=== PATIENT | female | born 1960 | race Caucasian/White ===

== ENCOUNTER 2022-03-08 08:15 | Emergency (ER) | payer OTHER, SELFPAY ==
[2022-03-08 08:21] VITALS: BP 199/99; PULSE 76; RESP 18; TEMP 36.3; O2SAT 98; BMI 34.3
--- NOTE | 2022-03-08 08:35 | ED.ABDPAIN ---
HPI - Abdominal Pain General Time Seen by Provider: 08:25 Date Seen: 03/08/22 Chief Complaint: Abdominal Pain Stated Complaint: abdominal pain Time Seen by Provider: 03/08/22 08:29 Source: patient and RN notes reviewed Mode of arrival: ambulatory Limitations: no limitations History of Present Illness HPI narrative: Patient is a 62-year-old female coming in with severe abdominal cramping. She points to her upper abdomen where she is feeling this. There may be some nausea, no vomiting or diarrhea. This woke her up about 4 hours ago from sleep. She is drink a little water but is not had anything to eat this morning. She admits she has had 2 other spells that were similar in the last couple of months. When kept her up all night but she was not seen for this. She has never had any prior abdominal surgery. She has no urinary symptoms. She is postmenopausal and has never had any postmenopausal bleeding. There was no associated fevers or chills with this. MD elicited complaint: abdominal pain Pertinent past history: none Onset (ago): hour(s) Pain Consistency: constant Location: epigastric and RUQ Severity: severe Quality: cramping Radiation: none Exacerbating factors: nothing Relieving factors: nothing Related Data Hx Last Menstrual Period: Postmenopausal Patient : No Home Medications Medication Instructions Recorded Confirmed No Known Home Medications 03/08/22 03/08/22 Allergies Allergy/AdvReac Type Severity Reaction Status Date / Time No Known Drug Allergies Allergy Verified 03/08/22 08:21 Review of Systems Status of ROS Reports: 10 or more systems reviewed and unremarkable except as noted in History and below [facility] Medical History (Updated 03/08/22 @ 13:11 by Maye Tripp MD) Acute cholecystitis Hypertension No significant past medical history Family History (Updated 03/08/22 @ 11:35 by David Thornton MD) Mother Uterine cancer Social History (Updated 03/08/22 @ 11:35 by David Thornton MD) 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 Smoking Status: Never smoker How often do you have a drink containing alcohol: monthly or less How often do you have six or more drinks on one occasion: Never AUDIT-C Alcohol total score: 1 Non-prescribed substance use: denies use Exam Const: Vital Signs, click to edit/add: Vital Signs - 24 hr 03/08/22 08:21 03/08/22 09:17 03/08/22 10:00 Temperature 97.3 F L Pulse Rate [Right Pulse Oximeter] 76 79 73 Respiratory Rate 18 18 18 Blood Pressure [Ri ght Upper Arm] 199/99 H 186/99 H 147/90 H Pulse Oximetry 98 99 93 03/08/22 10:30 03/08/22 11:00 Temperature Pulse Rate [Right Pulse Oximeter] 72 Respiratory Rate 18 118 H Blood Pressure [Ri ght Upper Arm] 145/85 H 143/85 H Pulse Oximetry 95 95 Documenting provider has reviewed patient's vital signs: yes Common normals: no apparent distress and oriented x3 General appearance: cooperative Nutritional appearance: obese Orientation/consciousness: Yes awake HENMT: Common normals: normocephalic, head/scalp atraumatic, external ears normal and external nose normal Head and scalp: normocephalic and atraumatic Face and sinus: normal facial exam Nose: external nose normal External ear: external ears normal Mouth: tongue normal and other (Mildly dry mucous membranes) Throat: posterior oropharynx normal Eye: Common normals: PERRL and EOMs intact bilaterally Pupil: PERRL Neck & C-Spine: Common normals: full ROM, no lymphadenopathy, supple, no JVD and thyroid normal Thyroid: thyroid normal Resp: Common normals: normal respiratory effort, no retractions, no use of accessory muscles and clear to auscultation bilaterally Auscultation: clear to auscultation bilaterally Cardio: Common normals: no JVD, regular rate, regular rhythm, S1 normal heart sound, S2 normal heart sound, no gallops, no clicks and no murmurs Rate: regular rate Rhythm: regular rhythm Heart sounds: S1 normal and S2 normal GI: Other: Abdomen is mildly obese, does not seem distended, she has xqbi-in-haiqvyot tenderness in the epigastric to right upper quadrant area without any organomegaly or palpable masses. Bowel sounds are hypo active. Extremity: Common normals: normal to inspection, full ROM, no calf tenderness and no pedal edema Neuro: Common normals: oriented x3 Sensorium/orientation: awake Course Course Hospital Course: Patient will get an IV placed, monitored on continuous oximetry is were going to give her morphine 4 mg IV for pain control and we will treat nausea with 4 mg IV. I am going to order right upper quadrant ultrasound to look at her gallbladder as abnormalities of her gallbladder are 1 of my top differential diagnoses. With hypoactive bowel sounds certainly ileus versus obstruction is always possible but certainly not as likely. She is not vomiting. She has never had any prior abdominal surgery putting her at risk for bowel obstruction. Other intra-abdominal pathology is possible and will get a full complement of labs including a lactate. Vascular etiologies in the abdomen really are not as likely by differential for this patient. She understands we may need to proceed to CT imaging and agrees to do so if felt necessary. Reevaluation(s) Reevaluation #1: Patient is comfortable after the morphine and Zofran. We will await the ultrasound report and the laboratory evaluation. Did review with the patient that there may be a bit of a delay in the labs as our chemistry analyzer is down they have to be sent to referral institution. The preliminary report on the ultrasound is that there are multiple small mobile stones in the gallbladder, gallbladder wall thickening and maybe some pericholecystic fluid. We will await Radiology over-read. Time: 09:35 Reevaluation #2: Patient remained stable, will be able to discharge to home for outpatient surgery tomorrow morning with laparoscopic cholecystectomy. She understands reasons for return. Note patient is clear for trial of anesthesia for the listed procedure. Time: 13:39 Consultations Consultation #1: Did page Dr. Thornton our surgeon whom promptly called back. Have reviewed with her that we do not have the liver panel or the lipase back but there are ultrasound findings concerning with the gallbladder. Around 11:[address] Thornton was in the ER and did examine the patient. She agreed she was pain-free at that time. Plan at this time is to appropriately preoperatively evaluate the patient, await her liver panel and lipase. If these pending labs are normal, patient will discharge home overnight with Brodhead for pain management, diet of clears to help nakia any pain and for cholecystectomy tomorrow. Time: 10:12 Consultation #2: Have reviewed the LFTs and normal lipase with General surgery. They feel she is still stable to discharge to home. Time: 12:56 Vital Signs Vital signs: Initial Vital Signs Temperature 97.3 F L 03/08/22 08:21 Temperature Source Temporal Artery Scan 03/08/22 08:21 Pulse Rate 76 03/08/22 08:21 Respiratory Rate 18 03/08/22 08:21 Blood Pressure 199/99 H 03/08/22 08:21 Blood Pressure Mean 132 03/08/22 08:21 Pulse Oximetry 98 03/08/22 08:21 Oxygen Delivery Method 03/08/22 08:21 Vital Signs Temperature 97.3 F L 03/08/22 08:21 Pulse Rate 76 03/08/22 08:21 Respiratory Rate 18 03/08/22 08:21 Blood Pressure 199/99 H 03/08/22 08:21 Pulse Oximetry 98 03/08/22 08:21 Temperature 97.3 F L 03/08/22 08:21 Pulse Rate 72 03/08/22 11:00 Respiratory Rate 118 H 03/08/22 11:00 Blood Pressure 143/85 H 03/08/22 11:00 Pulse Oximetry 95 03/08/22 11:00 MDM - Abdominal Pain MDM Narrative Medical decision making narrative: See hospital course. Lab Data Attestation: I reviewed the patient's lab results. Labs: Lab Results 03/08/22 03/08/22 03/08/22 Range/Units 09:08 09:08 09:08 WBC 10.62 (4.50-11.00) K/uL RBC 4.75 (4.00-5.20) m/uL Hgb 14.4 (12.0-16.0) gm/dL Hct 43.1 (33.0-51.0) % MCV 91 (80-100) fL MCH 30 (26-34) pg MCHC 33 (32-36) gm/dL RDW Coeff of Marisa 13.3 (11.5-15.5) % Plt Count 278 (140-440) K/uL Neut % (Auto) 81.6 H (42.0-72.0) % Lymph % (Auto) 9.2 L (20-44) % Harris % (Auto) 7.8 (0.0-11.0) % Eos % (Auto) 0.5 (0.0-7.0) % Baso % (Auto) 0.8 (0.0-3.0) % Neut # (Auto) 8.70 H (1.7-7.0) K/uL Lymph # (Auto) 1.00 (0.90-2.90) K/uL Harris # (Auto) 0.80 (0.00-0.90) K/UL Eos # (Auto) 0.05 (0.00-0.50) K/uL Baso # (Auto) 0.08 (0.00-0.30) K/uL Abs Immat Gran (auto) 0.01 (0.00-0.30) K/uL Sodium 141 (135-149) mmol/L Potassium 4.0 (3.6-5.1) mmol/L Chloride 104 (96-114) mmol/L Carbon Dioxide 26 (20-32) mmol/L BUN 13 (7-30) mg/dL Creatinine 0.7 (0.5-1.5) mg/dL Estimated Creat Clear 51.02 Glucose 127 H (60-115) mg/dL Lactate 3.1 H (0.5-1.9) mmol/L Calcium 9.2 (8.4-10.6) mg/dL Total Bilirubin 0.6 (0.1-1.5) mg/dL AST 150 H (12-35) U/L ALT 68 H (4-35) U/L Alkaline Phosphatase 134 (40-150) U/L Total Protein 7.4 (6.0-8.3) g/dL Albumin 4.6 (3.3-5.0) g/dL Lipase 136 (23-300) U/L Urine Color (Yellow) Urine Appearance (Clear) Urine pH (5.0-8.5) Ur Specific Hampton (1.000-1.030) Urine Protein (Negative) Urine Glucose (UA) (Negative) Urine Ketones (Negative) Urine Blood (Negative) Urine Nitrite (Negative) Urine Bilirubin (Negative) Urine Urobilinogen (0.2-1.0) Ur Leukocyte Esterase (Negative) Urine RBC (0-2) Urine WBC (0-5) Ur Squamous Epith Cells (None-Few) Amorphous Sediment (None) Urine Bacteria (None) SARS-CoV-2 (PCR) (Negative) 03/08/22 03/08/22 Range/Units 09:09 09:14 WBC (4.50-11.00) K/uL RBC (4.00-5.20) m/uL Hgb (12.0-16.0) gm/dL Hct (33.0-51.0) % MCV (80-100) fL MCH (26-34) pg MCHC (32-36) gm/dL RDW Coeff of Marisa (11.5-15.5) % Plt Count (140-440) K/uL Neut % (Auto) (42.0-72.0) % Lymph % (Auto) (20-44) % Harris % (Auto) (0.0-11.0) % Eos % (Auto) (0.0-7.0) % Baso % (Auto) (0.0-3.0) % Neut # (Auto) (1.7-7.0) K/uL Lymph # (Auto) (0.90-2.90) K/uL Harris # (Auto) (0.00-0.90) K/UL Eos # (Auto) (0.00-0.50) K/uL Baso # (Auto) (0.00-0.30) K/uL Abs Immat Gran (auto) (0.00-0.30) K/uL Sodium (135-149) mmol/L Potassium (3.6-5.1) mmol/L Chloride (96-114) mmol/L Carbon Dioxide (20-32) mmol/L BUN (7-30) mg/dL Creatinine (0.5-1.5) mg/dL Estimated Creat Clear Glucose (60-115) mg/dL Lactate (0.5-1.9) mmol/L Calcium (8.4-10.6) mg/dL Total Bilirubin (0.1-1.5) mg/dL AST (12-35) U/L ALT (4-35) U/L Alkaline Phosphatase (40-150) U/L Total Protein (6.0-8.3) g/dL Albumin (3.3-5.0) g/dL Lipase (23-300) U/L Urine Color Yellow (Yellow) Urine Appearance Cloudy A (Clear) Urine pH 7.0 (5.0-8.5) Ur Specific Hampton 1.020 (1.000-1.030) Urine Protein Trace A (Negative) Urine Glucose (UA) Negative (Negative) Urine Ketones Negative (Negative) Urine Blood Negative (Negative) Urine Nitrite Negative (Negative) Urine Bilirubin Negative (Negative) Urine Urobilinogen 1.0 (0.2-1.0) Ur Leukocyte Esterase Negative (Negative) Urine RBC 0-2 (0-2) Urine WBC 2-5 (0-5) Ur Squamous Epith Cells None (None-Few) Amorphous Sediment Few A (None) Urine Bacteria Moderate A (None) SARS-CoV-2 (PCR) Negative SARS-CoV-2 (Negative) Imaging Data US - abdomen: Attestation: I have reviewed the pertinent imaging results. Radiologist's impression: Patient: OLIVER ESTES Facility:?[facility] Patient ID:?[id number] Site Patient ID:?[id number]. Site :?[id number] Study:?US Abdomen RUQ-03/08/2022 9:31:11 AM Ordering Physician:Kassandra Villavicencio Final Report: INDICATION: RUQ/EPIGASTRIC PAIN COMPARISON: none TECHNIQUE: Real time pena scale imaging and color Doppler analysis was performed of the right upper quadrant. FINDINGS: The patient`s liver is of normal size and has uniform echogenicity. An incidental simple cyst is present within the right hepatic lobe measuring 3.1 x 3.6 x 3.4 cm. There is a normal appearance of the hepatic IVC and proximal abdominal aorta. Faint layering debris/stones noted within the gallbladder lumen. Positive sonographic Catalan sign. The gallbladder wall measures 5 mm in thickness. Mild pericholecystic fluid appears to be present. The common bile duct measures 7 mm in diameter at the level of the jaylan hepatis. The pancreas appears normal. There is no evidence of a stone or hydronephrosis within the right kidney. The right kidney measures 11.1 cm in length. IMPRESSION: Mild layering sludge and stones in the gallbladder lumen with gallbladder wall thickening, trace pericholecystic fluid and positive sonographic Catalan`s sign raising the possibility of acute cholecystitis. Dictated by Hipolito Bloom MD @ 03/08/2022 9:39:08 AM (Electronic Signature) ECG Data Attestation: I personally reviewed and interpreted this ECG as follows: (Sinus rhythm with sinus arrhythmia, 70 beats per minute. Flipped T-waves lead V1 and V2 without any ST segment changes. No acute ischemia or evidence of prior [place]. no LVH criteria noted.) ECG interpretation date: 03/08/22 ECG interpretation time: 11:39 Prior ECG tracings: not available for review Core Measures AMI core measures followed: No Measure exclusions: not indicated Critical Care Time Critical Care Time Critical Care Time: No Discharge Plan Discharge Clinical Impression: Cholelithiasis Condition: Stable Instructions: Gallstones (ED), Laparoscopic Cholecystectomy (DC) Additional Instructions: Use Brodhead as prescribed for pain, 1-2 tablets every 6-8 hours as needed, #4 provided from [facility]. If you develop fever, severe abdominal pain overnight, have uncontrolled vomiting, do need to return to the ER. Otherwise clear liquids up until midnight or the time that the surgery crew has advised due to be off all food and drink. Return for your cholecystectomy as scheduled per Dr. Thornton tomorrow. Activity Level: No Restrictions Discharge Diet: Clear Liquid Prescriptions: No Action No Known Home Medications 0RF Stand Alone Forms: [employer] Info Instructions
--- NOTE | 2022-03-08 08:37 | CRLHL7_ITS ---
For Patients: As a result of the Century Cures Act, medical imaging exams and procedure reports are released immediately into your electronic medical record. You may view this report before your referring provider. If you have questions, please contact your health care provider. INDICATION: RUQ/EPIGASTRIC PAIN COMPARISON: none TECHNIQUE: Real time pena scale imaging and color Doppler analysis was performed of the right upper quadrant. FINDINGS: The patient`s liver is of normal size and has uniform echogenicity. An incidental simple cyst is present within the right hepatic lobe measuring 3.1 x 3.6 x 3.4 cm. There is a normal appearance of the hepatic IVC and proximal abdominal aorta. Faint layering debris/stones noted within the gallbladder lumen. Positive sonographic Catalan sign. The gallbladder wall measures 5 mm in thickness. Mild pericholecystic fluid appears to be present. The common bile duct measures 7 mm in diameter at the level of the jaylan hepatis. The pancreas appears normal. There is no evidence of a stone or hydronephrosis within the right kidney. The right kidney measures 11.1 cm in length. IMPRESSION: Mild layering sludge and stones in the gallbladder lumen with gallbladder wall thickening, trace pericholecystic fluid and positive sonographic Catalan`s sign raising the possibility of acute cholecystitis. Dictated by Hipolito Bloom MD @ 03/08/2022 9:39:08 AM (Electronically Signed)
[2022-03-08] MEDS: MORPHINE 4 MG/ML INJ IVP (09:04)
[2022-03-08] MEDS: ONDANSETRON 2 MG/ML inj 4 MG IVP (09:04)
[2022-03-08 09:17] VITALS: BP 186/99; PULSE 79; RESP 18; O2SAT 99
[2022-03-08 09:23] LABS: Lactate* 3.1 mmol/L (0.5-1.9)
[2022-03-08 09:26] LABS: Appearance Urine Cloudy (Clear); Bilirubin Urine Negative (Negative); Blood Urine Negative (Negative); Color Urine Yellow (Yellow); Glucose Urine Negative (Negative); Ketones Urine Negative (Negative); Leukocyte Esterase Urine Negative (Negative); Nitrite Urine Negative (Negative); Protein Urine Trace (Negative)
[2022-03-08 09:27] LABS: Basophils Absolute Auto 0.08 K/uL (0.00-0.30); Basophils Percent Auto 0.8 % (0.0-3.0); Eosinophils Absolute Auto 0.05 K/uL (0.00-0.50); Eosinophils Percent Auto 0.5 % (0.0-7.0); Hematocrit 43.1 % (33.0-51.0); Hemoglobin* 14.4 gm/dL (12.0-16.0); Immature Granulocytes Abs Auto 0.01 K/uL (0.00-0.30); Lymphocytes Percent Auto 9.2 % (20-44); Mean Corpuscular HGB Conc 33 gm/dL (32-36); Mean Corpuscular Hemoglobin 30 pg (26-34); Mean Corpuscular Volume 91 fL (80-100); Monocytes Percent Auto 7.8 % (0.0-11.0); Neutrophils Percent Auto 81.6 % (42.0-72.0); Platelet Count* 278 K/uL (140-440); RDW Coefficient of Variation % 13.3 % (11.5-15.5); Red Blood Count 4.75 m/uL (4.00-5.20); White Blood Count* 10.62 K/uL (4.50-11.00)
[2022-03-08 09:44] LABS: Amorphous Sediment Urine Few; Bacteria Urine Moderate; RBC Urine 0-2 (0-2)
[2022-03-08 09:50] LABS: Carbon Dioxide* 26 mmol/L (20-32); Chloride* 104 mmol/L (96-114); Sodium* 141 mmol/L (135-149)
[2022-03-08 09:51] LABS: Glucose* 127 mg/dL (60-115)
[2022-03-08 10:00] VITALS: BP 147/90; PULSE 73; RESP 18; O2SAT 93
[2022-03-08] MEDS: 0.9 % SODIUM CHLORIDE 500 ML 500 ML IV (10:17)
[2022-03-08 10:20] LABS: SARS PCR* Negative SARS-CoV-2 (Negative)
[2022-03-08 10:30] VITALS: BP 145/85; RESP 18; O2SAT 95
[2022-03-08 11:00] VITALS: BP 143/85; PULSE 72; RESP 118; O2SAT 95
--- NOTE | 2022-03-08 11:27 | P.GSCN_ITS ---
History of Present Illness Consult details Consult date: 03/08/22 Requesting physician: Maye Tripp Narrative: 62-year-old female presented to emergency room and I was asked by Dr. Lebron to see her in consultation. Patient states that she developed crampy right upper quadrant and epigastric abdominal pain at 4:00 a.m. in the morning today. The pain was getting progressively worse and patient came into the emergency room. She had 2 similar episodes of pain in the same location in the last month but did not seek medical attention. During 1 of those episodes the pain was so severe, the patient was not able to sleep. Patient denies any nausea vomiting. She is currently not passing gas. In the emergency room she was found to have a WBC of 10.6. Her liver function tests are pending. A gallbladder ultrasound was obtained that showed chol elithiasis with sludge, the gallbladder wall was 5 mm thick with trace pericholecystic fluid. Her common bile duct was 7 mm. 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 Smoking Status: Never smoker How often do you have a drink containing alcohol: monthly or less How often do you have six or more drinks on one occasion: Never AUDIT-C Alcohol total score: 1 Non-prescribed substance use: denies use Meds Home Medications and Allergies Home Medications Medication Instructions Recorded Confirmed Type No Known Home Medications 03/08/22 03/08/22 History Allergies Allergy/AdvReac Type Severity Reaction Status Date / Time No Known Drug Allergies Allergy Verified 03/08/22 08:21 Exam Narrative: Exam Narrative: General appearance: Alert, cooperative, and in no distress Pulmonary: Chest symmetric, lungs clear bilaterally Cardiovascular Heart: Regular rate and rhythm, S1, S2, no murmurs/rubs/gallops Gastrointestinal Abdominal: soft, not distended, tender to palpation in right upper quadrant and epigastrium with negative Catalan sign. Skin: Normal skin color, texture, and turgor. No rashes or lesions. Psychiatric: Alert, cooperative, normal affect. Const: Vital Signs, click to edit/add: Vital Signs - 24 hr 03/08/22 08:21 03/08/22 09:17 03/08/22 10:00 Temperature 97.3 F L Pulse Rate [Right Pulse Oximeter] 76 79 73 Respiratory Rate 18 18 18 Blood Pressure [Ri ght Upper Arm] 199/99 H 186/99 H 147/90 H Pulse Oximetry 98 99 93 03/08/22 10:30 03/08/22 11:00 Temperature Pulse Rate [Right Pulse Oximeter] 72 Respiratory Rate 18 118 H Blood Pressure [Ri ght Upper Arm] 145/85 H 143/85 H Pulse Oximetry 95 95 Results Labs Labs: Abnormal lab results 03/08/22 03/08/22 03/08/22 Range/Units 09:08 09:08 09:08 Neut % (Auto) 81.6 H (42.0-72.0) % Lymph % (Auto) 9.2 L (20-44) % Neut # (Auto) 8.70 H (1.7-7.0) K/uL Glucose 127 H (60-115) mg/dL Lactate 3.1 H (0.5-1.9) mmol/L Urine Appearance (Clear) Urine Protein (Negative) Amorphous Sediment (None) Urine Bacteria (None) 03/08/22 Range/Units 09:09 Neut % (Auto) (42.0-72.0) % Lymph % (Auto) (20-44) % Neut # (Auto) (1.7-7.0) K/uL Glucose (60-115) mg/dL Lactate (0.5-1.9) mmol/L Urine Appearance Cloudy A (Clear) Urine Protein Trace A (Negative) Amorphous Sediment Few A (None) Urine Bacteria Moderate A (None) Diabetes panel 03/08/22 Range/Units 09:08 Sodium 141 (135-149) mmol/L Potassium 4.0 (3.6-5.1) mmol/L Chloride 104 (96-114) mmol/L Carbon Dioxide 26 (20-32) mmol/L Glucose 127 H (60-115) mg/dL Pituitary panel 03/08/22 Range/Units 09:08 Sodium 141 (135-149) mmol/L Potassium 4.0 (3.6-5.1) mmol/L Chloride 104 (96-114) mmol/L Carbon Dioxide 26 (20-32) mmol/L Glucose 127 H (60-115) mg/dL Adrenal panel 03/08/22 Range/Units 09:08 Sodium 141 (135-149) mmol/L Potassium 4.0 (3.6-5.1) mmol/L Chloride 104 (96-114) mmol/L Carbon Dioxide 26 (20-32) mmol/L Glucose 127 H (60-115) mg/dL All other labs normal. Assessment and Plan Assessment and plan (1) Acute cholecystitis: Status: Acute Plan 62-year-old female presents with acute cholecystitis. I discussed with the patient my clinical findings. We discussed her ultrasound results and her laboratory results. Her liver function tests are still pending. I recommended to proceed with laparoscopic cholecystectomy. Due to the operating room schedule, we will most likely be for surgery tomorrow. Patient's pain has improved and she is asking to be discharged home to come back for her surgery tomorrow. I think this is reasonable. The procedure was discussed in detail. The risks associated the procedure including infection, bleeding, injury to the intra-abdominal organs, injury to the common bile duct, and exposure to COVID-19 all discussed with the patient, and she agreed to proceed. We will wait for her liver function tests to be resulted to finalize our plan, (those needed to be sent out because of the equipment issues). Patient will also get an EKG.
[2022-03-08 11:30] VITALS: BP 158/83; PULSE 73; RESP 16; O2SAT 96
[2022-03-08 12:26] LABS: Albumin* 4.6 g/dL (3.3-5.0)
[2022-03-08 12:29] LABS: Alkaline Phosphatase* 134 U/L (40-150); Aspartate Amino Transferase* 150 U/L (12-35); Bilirubin Total* 0.6 mg/dL (0.1-1.5); Blood Urea Nitrogen* 13 mg/dL (7-30); Calcium* 9.2 mg/dL (8.4-10.6); Creatinine* 0.7 mg/dL (0.5-1.5); Est. Creatinine Clearance* 51.02; Estimated Glomerular Filt Rate 98.34; Total Protein* 7.4 g/dL (6.0-8.3)
[2022-03-08 12:30] LABS: Alanine Aminotransferase* 68 U/L (4-35); Lipase* 136 U/L (23-300)
[2022-03-08 16:01] LABS: Slide Review Reflex No
== END 2022-03-08 13:53 | disposition home or self-care (01) ==
PROVIDERS: Emergency Provider Family Medicine; PCP Family Medicine
DX: K81.0 Acute cholecystitis (principal)
CPT/HCPCS: 36415; 76705; 80053; 81003; 81015; 83605; 83690; 85025; 87086; 87635; 93005; 96374; 96375; 99284; 99285; J2270; J2405; J7120

== ENCOUNTER 2022-03-09 09:10 | Day surgery (SDC) | payer OTHER, SELFPAY ==
[2022-03-09] VITALS (10 sets, daily range): BP systolic 122–177; BP diastolic 71–104; PULSE 55–80; RESP 16–54; TEMP 36.2–36.6; O2SAT 95–99; BMI 34.4
[2022-03-09] MEDS: LACTATED RINGERS 1000 ML 1,000 ML 100 ML IV (09:30)
[2022-03-09] MEDS: SODIUM CHLORIDE 0.9 % (FLUSH) 10 ML SYRINGE IVF (09:50)
[2022-03-09] MEDS: CEFAZOLIN 2 GM INJ IVP (11:21)
[2022-03-09] MEDS: BUPIVACAINE 0.25% 30 ML 10 ML INJECTION (11:25)
--- NOTE | 2022-03-09 12:05 | P.GSOP_ITS ---
Operative Note Date of procedure: 03/09/22 Type of Procedure: 1. Laparoscopic cholecystectomy. Procedure Description: After discussing the risks and benefits of the procedure, the patient signed informed consent.? The operative site was marked and the patient was brought to the operating room and placed on the operating table in supine position.? Care was taken to pad the patient's pressure points.?? The patient was then intubated by anesthesia.?? The operative site was then prepped and draped in the usual sterile fashion.? A time-out was then performed. A 5-mm laparoscopy port was placed in the left upper quadrant guided by a 5-mm laparoscope placed into a translucent trochar.~ Passage through the layers of the abdominal wall was visualized with the laparoscope.~ A pneumoperitoneum was established. A 0-degree 5-mm laparoscope was advanced into the abdomen. The abdomen was briefly surveyed, and no adhesions were noted. A 10-mm port were placed infraumbilically and two more 5 mm ports were placed on the right under direct visualization by laparoscope. The camera was then changed to 10 mm 30- degree scope and placed into the abdomen through the 10 mm port. The left upper quadrant port entrance was examined and no injury to intra-abdominal organs was identified. The gallbladder was identified, the fundus grasped and retracted cephalad. A simple liver cyst was noted just lateral to the gallbladder fossa. Omentum was adherent to the anterior surface of the gallbladder. Those adhesions were taken down with cautery. Edema was noted in the gallbladder wall and in the adjacent omentum. The infundibulum was grasped and retracted laterally, exposing the peritoneum overlying the triangle of Calot. This was then divided and exposed in a blunt fashion and with hook cautery. Common bile duct was not identified but care was taken not to injure it. The cystic duct was clearly identified and bluntly dissected circumferentially. Cystic artery was identified and tissues around it were dissected off. The cystic artery and the cystic duct were clearly going into the gallbladder. The cystic duct was then doubly ligated with surgical clips on the patient's side and singly clipped on the gallbladder side and divided. The cystic artery was then similarly ligated with clips and divided as well. The gallbladder was dissected from the liver bed in retrograde fashion using hookcautery. The gallbladder was placed into an Endo-Catch bag and removed through the infraumbilical incision. Surgical site was examined for bleeding. No bleeding was seen in the surgical field. The fascia of the infraumbilical incision was then closed with 0-0 vicryl sutures using Dexter Jesica needle under direct visualization. Pneumoperitoneum was completely reduced after viewing removal of the trocars under direct vision. The skin was then closed with 4-0 monocryl and steristrips were applied. Instrument, sponge, and needle counts were correct at closure and at the conclusion of the case. The patient was transferred to PACU in stable condition. Findings: Edema in the gallbladder wall consistent with acute cholecystitis. Simple liver cysts noted. Anesthesia: GETA Surgeon: David Thornton MD Estimated blood loss (mL): 5 Condition: stable Disposition: PACU
[2022-03-09] MEDS: fentaNYL 100 MCG/2 ML inj 50 MCG IVP (12:19)
--- NOTE | 2022-03-09 12:24 | W.ANESCHARGE ---
Anesthesia Charges Start Date/Time Anesthesia Start Date: 03/09/22 Anesthesia Start Time: 11:05 Stop Date/Time Anesthesia Stop Date: 03/09/22 Anesthesia Stop Time: 12:15 Summary Emergency: No
[2022-03-09] MEDS: HYDRALAZINE HCL 20 MG/ML inj 10 MG IVP (12:31)
[2022-03-09] MEDS: LACTATED RINGERS 1000 ML 1,000 ML 35 ML IV (12:42)
--- NOTE | 2022-03-09 13:54 | W.ANESCHARGE ---
Anesthesia Charges Start Date/Time Anesthesia Start Date: 03/09/22 Anesthesia Start Time: 11:05 Stop Date/Time Anesthesia Stop Date: 03/09/22 Anesthesia Stop Time: 12:15 Summary Emergency: No
== END 2022-03-09 13:20 | disposition home or self-care (01) ==
PROVIDERS: PCP Family Medicine; Visit Provider Surgery
PROC: 0FT44ZZ Resection of Gallbladder, Percutaneous Endoscopic Approach (ICD-10-PCS; CPT 47562; principal; 2022-03-09 11:00)
DX: K80.12 Calculus of gallbladder with acute and chronic cholecystitis without obstruction (principal); I10 Essential (primary) hypertension
CPT/HCPCS: 47562; 00790; 88304; J0360; J0690; J1100; J2405; J2704; J2710; J3010; J3490; J7120

== ENCOUNTER 2023-03-25 08:26 | Emergency (ER) | payer OTHER, SELFPAY ==
[2023-03-25 08:28] VITALS: BP 159/75; PULSE 73; RESP 18; TEMP 36.6; O2SAT 98; BMI 35.7
[2023-03-25 09:06] LABS: Basophils Absolute Auto 0.07 K/uL (0.00-0.30); Basophils Percent Auto 0.8 % (0.0-3.0); Eosinophils Absolute Auto 0.16 K/uL (0.00-0.50); Eosinophils Percent Auto 1.9 % (0.0-7.0); Hematocrit 41.5 % (33.0-51.0); Immature Granulocytes Abs Auto 0.02 K/uL (0.00-0.30); Immature Granulocytes Pct Auto 0.2 %; Lymphocytes Percent Auto 17.4 % (20-44); Mean Corpuscular HGB Conc 34 gm/dL (32-36); Mean Corpuscular Hemoglobin 30 pg (26-34); Mean Corpuscular Volume 90 fL (80-100); Monocytes Percent Auto 7.4 % (0.0-11.0); Neutrophils Percent Auto 72.3 % (42.0-72.0); Platelet Count* 296 K/uL (140-440); RDW Coefficient of Variation % 13.7 % (11.5-15.5); Red Blood Count 4.62 m/uL (4.00-5.20); White Blood Count* 8.34 K/uL (4.50-11.00)
[2023-03-25 09:09] LABS: Slide Review Reflex No
--- NOTE | 2023-03-25 09:09 | ED_ITS ---
HPI - General Adult General Chief complaint: GI Bleed Stated complaint: bloody stool Time Seen by Provider: 03/25/23 08:34 Source: patient Mode of arrival: ambulatory Limitations: no limitations History of Present Illness HPI narrative: 63-year-old female coming in today complaining of bright red blood per rectum. She states that it is enough to tinge the color of the toilet water. She denies dizziness or lightheadedness. She denies chest pain or shortness of breath. She denies rectal pain. She denies inserting anything in the rectum. She states that her last colonoscopy was 5 years ago when she had some polyps, she has a repeat colonoscopy due this May. She had some epigastric discomfort yesterday, she is concerned she might have an ulcer. She states that she has had 3 stools in the last 2 days and they have been soft but formed. The blood surrounds the stool. Related Data Home Medications Medication Instructions Recorded Confirmed lisinopril 20 mg tablet 20 mg PO DAILY 03/25/23 03/25/23 triamterene 75 1 tab PO DAILY 03/25/23 03/25/23 mg-hydrochlorothiazide 50 mg tablet Previous Rx's Medication Instructions Recorded hydrocodone 5 mg-acetaminophen 325 1 tab PO Q6H PRN pain #25 tabs 03/09/22 mg tablet Allergies Allergy/AdvReac Type Severity Reaction Status Date / Time No Known Drug Allergies Allergy Verified 03/08/22 08:21 Review of Systems Status of ROS: Reports: 10 or more systems reviewed and unremarkable except as noted in History and below [facility] Medical History Acute cholecystitis ?K81.0 - Acute cholecystitis (ICD-10) Hypertension ?I10 - Essential (primary) hypertension (ICD-10) No significant past medical history Family History Mother Uterine cancer Social History Narrative: 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 Smoking Status: Former smoker What tobacco products do you use: cigarettes Smoking quit date/years: >15 years ago Do you use any of these nicotine containing products: None How often do you have a drink containing alcohol: 2-3 times a week Alcohol type: beer and other Alcohol type details: WEEKENDS How often do you have six or more drinks on one occasion: Never AUDIT-C Alcohol total score: 3 Non-prescribed substance use: denies use Caffeine: Yes Are you using contraception or practicing any form of control: No Exam Narrative: Exam Narrative: Well-nourished well-developed patient in no acute distress. Alert and oriented. Answers questions appropriately. Mood and affect are appropriate. Thoughts are goal oriented and rational. No tangential or magical thinking noted. Patient speaks in full sentences without needing to catch their breath. HEENT: Normocephalic atraumatic. Pupils are equally round reactive to light. Extraocular muscles are intact. Conjunctivae are moist without any icterus noted. Moist mucous membranes. Posterior pharynx is normal. Neck is soft without any lymphadenopathy or thyromegaly. No masses are appreciated. Cardiovascular: Heart is regular rate and rhythm S1 and S2 are present without any murmurs. Lungs: Clear to auscultation bilaterally no wheezes rhonchi or rales are appreciated. Patient takes deep breaths without any discomfort. Abdomen: Soft and nontender nondistended with normal bowel sounds. No guarding or rebound. No masses or organomegaly appreciated. Extremities: Bilateral lower extremities are without edema. Normal DP and PT pulses. Skin: Well perfused without any obvious rashes. Rectal exam: No obvious external hemorrhoids, no rectal fissures noted. Normal rectal tone, no rectal masses appreciated. On my gloved finger there is a minimal amount of brown stool. There is no significant amount of stool in the rectal vault. Const: Vital Signs, click to edit/add: Vital Signs - 24 hr 03/25/23 08:28 Temperature 97.8 F Pulse Rate [Right Pulse Oximeter] 73 Respiratory Rate 18 Blood Pressure [Ri ght Upper Arm] 159/75 H Pulse Oximetry 98 Oxygen Delivery Me thod Room Air Course Course Hospital Course: Stool Hemoccult did come back negative, however the sample amount was quite small. CBC and chemistries were unremarkable. Vital Signs Vital signs: Initial Vital Signs Temperature 97.8 F 03/25/23 08:28 Temperature Source Temporal Artery Scan 03/25/23 08:28 Pulse Rate 73 03/25/23 08:28 Respiratory Rate 18 03/25/23 08:28 Blood Pressure 159/75 H 03/25/23 08:28 Blood Pressure Mean 103 07/28/23 08:28 Blood Pressure Position Sitting 03/25/23 08:28 Pulse Oximetry 98 03/25/23 08:28 Oxygen Delivery Method Room Air 03/25/23 08:28 Vital Signs Temperature 97.8 F 03/25/23 08:28 Pulse Rate 73 03/25/23 08:28 Respiratory Rate 18 03/25/23 08:28 Blood Pressure 159/75 H 03/25/23 08:28 Pulse Oximetry 98 03/25/23 08:28 Oxygen Delivery Method Room Air 03/25/23 08:28 Temperature 97.8 F 03/25/23 08:28 Pulse Rate 73 03/25/23 08:28 Respiratory Rate 18 03/25/23 08:28 Blood Pressure 159/75 H 03/25/23 08:28 Pulse Oximetry 98 03/25/23 08:28 Oxygen Delivery Method Room Air 03/25/23 08:28 Medical Decision Making MDM Narrative Medical decision making narrative: 63-year-old female coming in today with blood on her stools. Differential diagnoses include internal hemorrhoids, fissures would be less likely given the lack of pain, upper GI bleed less likely given the description of the blood. At this time recommend she eat a high-fiber diet to make sure stools are soft. Recommend she follow up with her primary care provider, they can potentially move up her colonoscopy at this time. Return to the ER if bleeding gets worse. Lab Data Lab results reviewed: Yes I reviewed the patient's lab results Labs: Lab Results 03/25/23 03/25/23 Range/Units 08:40 08:56 WBC 8.34 (4.50-11.00) K/uL RBC 4.62 (4.00-5.20) m/uL Hgb 14.0 (12.0-16.0) gm/dL Hct 41.5 (33.0-51.0) % MCV 90 (80-100) fL MCH 30 (26-34) pg MCHC 34 (32-36) gm/dL RDW Coeff of Marisa 13.7 (11.5-15.5) % Plt Count 296 (140-440) K/uL Neut % (Auto) 72.3 H (42.0-72.0) % Lymph % (Auto) 17.4 L (20-44) % [place] % (Auto) 7.4 (0.0-11.0) % Eos % (Auto) 1.9 (0.0-7.0) % Baso % (Auto) 0.8 (0.0-3.0) % Neut # (Auto) 6.00 (1.7-7.0) K/uL Lymph # (Auto) 1.50 (0.90-2.90) K/uL [place] # (Auto) 0.60 (0.00-0.90) K/UL Eos # (Auto) 0.16 (0.00-0.50) K/uL Baso # (Auto) 0.07 (0.00-0.30) K/uL Abs Immat Gran (auto) 0.02 (0.00-0.30) K/uL Imm/Tot Granulo (auto) 0.2 % Sodium 134 L (135-149) mmol/L Potassium 3.7 (3.6-5.1) mmol/L Chloride 98 (96-114) mmol/L Carbon Dioxide 32 (20-32) mmol/L BUN 16 (7-30) mg/dL Creatinine 0.9 (0.5-1.5) mg/dL Estimated Creat Clear 50.37 Estimated GFR 72 ml/min Glucose 112 (60-115) mg/dL Calcium 9.1 (8.4-10.6) mg/dL Stool Occult Blood Negative (Negative) Discharge Plan Discharge Clinical Impression: Bright red rectal bleeding Patient Disposition: Home, Self-Care Condition: Stable Additional Instructions: Follow-up with your primary care provider to discuss moving up her colonoscopy. Return to the ER if bleeding worsens. Recommend you take a daily stool softener and eat a high-fiber diet to keep stools soft. Make sure to stay well hydrated. Prescriptions: No Action lisinopril 20 mg tablet 20 mg PO DAILY triamterene-hydrochlorothiazid 75-50 mg tablet 1 tab PO DAILY hydrocodone-acetaminophen 5-325 mg tablet 1 tab PO Q6H PRN (Reason: pain) Qty: 25 0RF Follow Up/Referrals: Stephenie Bernstein DO [Primary Care Provider] - Stand Alone Forms: MyHealth Info Instructions
[2023-03-25 09:10] LABS: Fecal Occult Blood* Negative (Negative)
[2023-03-25 09:20] LABS: Chloride* 98 mmol/L (96-114); Potassium* 3.7 mmol/L (3.6-5.1); Sodium* 134 mmol/L (135-149)
[2023-03-25 09:23] LABS: Blood Urea Nitrogen* 16 mg/dL (7-30); Calcium* 9.1 mg/dL (8.4-10.6); Carbon Dioxide* 32 mmol/L (20-32); Creatinine* 0.9 mg/dL (0.5-1.5); Est. Creatinine Clearance* 50.37; Estimated Glomerular Filt Rate 72 ml/min; Glucose* 112 mg/dL (60-115)
== END 2023-03-25 09:43 | disposition home or self-care (01) ==
PROVIDERS: Emergency Provider Family Medicine; PCP Family Medicine
DX: K62.5 Hemorrhage of anus and rectum (principal)
CPT/HCPCS: 36415; 80048; 82270; 85025; 99283; 99284